=== PATIENT | male | born 1985 | race African-American/Black ===

== ENCOUNTER 2021-07-29 18:39 | Emergency (ER) | payer OTHER, SELFPAY ==
--- NOTE | ~2021-07-29 | CT_ITS ---
EXAMINATION: CT facial bones wo [facility] EXAM DATE: 07/29/2021 19:32 INDICATION: Fall on the ice . Facial injury, laceration bruising left orbital region. TECHNIQUE: Spiral CT of the facial bones was acquired in the axial plane without contrast. Coronal reformatted images were also reviewed. The dose-length product (DLP) for this examination was 301.47 mGy-cm. The exposure was tailored according to patient size, and iterative reconstruction (ASIR) wa s used as additional dose reduction technique. There is no prior study for comparison. FINDINGS: There are no displaced acute nasal bone fractures. The mandible, sinuses and orbits are in tact. The orbits, globes and extraocular muscles are unremarkable. The visualized sinuses and mas toid air cells are well aerated. There is left periorbital swelling. IMPRESSION: 1. No acute facial fracture. 2. Left periorbital swelling. Reviewed, dictated and finalized at location . LING AGENCY MANAGER
--- NOTE | ~2021-07-29 | CT_ITS ---
EXAMINATION: CT lumbar spine janneth ritter EXAM DATE: 07/29/2021 19:31 INDICATION: Fall on the ice . Low back pain, initial encounter. TECHNIQUE: Spiral CT lumbar spine was performed without contrast. Axial, coronal and sagittal images of the lumbar spine were reviewed. The dose-length product (DLP) for this examination was 645.56 mGy- cm. The exposure was tailored according to patient size (auto mA exposure control), and iterative re construction (ASIR) was used as additional dose reduction technique. There is no prior study for cuate [place]. FINDINGS: There is no evidence of acute lumbar fracture. There is no disc space widening or traumatic vertebra l body subluxation suspected. Paraspinal soft tissue is unremarkable. Vertebral body and disc heigh ts are well-maintained. A detailed level by level evaluation of spondylosis can be added as addendum if requested. IMPRESSION: 1. No acute lumbar findings. Reviewed, dictated and finalized at location . USION ANALYST
--- NOTE | ~2021-07-29 | CT_ITS ---
EXAMINATION: CT diagnostic chest wo con EXAM DATE: 07/29/2021 19:33 INDICATION: Fall on the ice . Anterior superior rib pain. Low back pain. TECHNIQUE: Spiral CT of the chest without contrast. Axial, coronal and sagittal images of the chest were reviewed. Coronal maximum intensity pixel images of chest reviewed. The dose-length product ( DLP) for this examination was 175.48 mGy-cm. The exposure was tailored according to patient size (au to mA exposure control), and iterative reconstruction (ASIR) was used as additional dose reduction [place]. There is no prior study for comparison. FINDINGS: There are no acute fractures identified. The lungs are clear. There are no pleural or pe ricardial effusions. Tracheobronchial tree is patent. There is no mediastinal, hilar or axillary lymphadenopathy. There is no pneumothorax. Heart normal in size. No evidence of coronary arteri al calcification. Upper abdomen is unremarkable. There is thoracic spondylosis without osteoblasti c or osteolytic lesions identified. IMPRESSION: No acute cardiopulmonary findings. Reviewed, dictated and finalized at location G. GHT TALLIER
[2021-07-29 18:51] VITALS: BP 143/93; PULSE 66; RESP 20; TEMP 36.8; O2SAT 100
--- NOTE | 2021-07-29 18:52 | ED.FALL ---
HPI - Fall General Chief Complaint: Fall Stated Complaint: Ambulance Time Seen by Provider: 07/29/21 18:43 Source: patient, EMS and RN notes reviewed Mode of arrival: EMS Limitations: no limitations History of Present Illness HPI Narrative: Patient slipped on the ice in the parking lot at [employer]. Said his feet went backwards and he fell directly onto his anterior chest and left face. He complains of low back pain left facial pain and chest wall pain. [employer] was not open for indoor dining. complaint: fall Onset (ago): minute(s) (30) Fall from: standing Fall witnessed: yes, by family Place fall occurred: other ( [facility] parking lot) Loss of consciousness: none Symptoms prior to fall: none Context: tripped/slipped ( ice) Location of injury: face, chest and back Severity scale (1-10): 9 Quality: dull and aching Associated symptoms (after fall): headache Related Data Allergies Allergy/AdvReac Type Severity Reaction Status Date / Time SEAFOOD Allergy Rash Uncoded 07/29/21 18:58 Review of Systems Review of Systems: All systems reviewed & are unremarkable except as noted in HPI and below PMFSH Past Medical History Medical History (Updated 07/29/21 @ 20:50 by Drake Ibarra MD) Asthma Surgical History Surgical History (Updated 07/29/21 @ 19:07 by Drake Ibarra MD) History of mandibular surgery Social History Social History (Updated 07/29/21 @ 19:07 by Drake Ibarra MD) Smoking status: Current every day smoker Tobacco type: cigarettes Exam Const: General: healthy appearing, no acute distress and alert Nutritional Appearance: well nourished Orientation/consciousness: patient oriented x3 Other: GCS-15 HENMT: Ears: TM's normal bilaterally Face and sinus: normal facial exam Mouth: Yes moist mucous membranes Eyes: Conjunctivae: conjunctivae normal Pupils: Equal, round and reactive pupils present EOM: EOMs intact bilaterally Neck: Neck: normal visual inspection Chest: Chest palpation & inspection: tenderness rib right mid-scapular line involving the 4th rib and involving the 5th rib Resp: Effort & Inspection: normal respiratory effort Auscultation: clear to auscultation bilaterally Cardio: Rate: regular rate Rhythm: regular rhythm GI: GI Palp: Yes Soft to palpation, No Tenderness to palpation present (GI) and No Guarding due to palpation present (GI) Auscultation: normal bowel sounds Back/Spine/Pelvis: Cervical Spine: cervical ROM normal Thoracic/Lumbar Spine: straight leg raise negative bilaterally, paraspinal muscle tenderness bilaterally in the lower lumbar, thoraco-lumbar ROM limited and lumbar spinal tenderness at L3, at L4 and at L5 Skin: General skin exam: normal color Rashes: no rashes Wounds: wounds noted (left lateral eyebrow) laceration left lateral face size (2 cm) Neuro: General: patient oriented x3, moves all extremities, no meningeal signs, no focal motor deficits and Unable to assess gait Speech: normal speech Gait exam (Neuro): Normal gait present Extrem: General: normal to inspection and no clubbing, cyanosis or edema Psych: Appearance: grossly normal and well kempt Mental Status: mental status grossly normal Affect: normal affect Attitude: cooperative Thought content: Yes Normal thought content present Procedures Laceration Laceration 1: Date: 07/29/21 Site: face ( Left lateral eyebrow) Side (If applicable): left Size (cm): 2 Description: linear Depth: simple, single layer Local Anesthetic: lidocaine 1% Pre-repair: wound explored ====== Skin Level ====== Skin layer closed with: nylon Size (cm): 5-0 Number of sutures: 7 Technique: running ====== Subcutaneous Layer ====== ====== Muscle Layer ====== ====== Tendon Layer ====== Discharge Plan Discharge Clinical Impression: Eyebrow laceration Qualifiers: Encounter type: initial encounter Lat
[2021-07-29 19:59] LABS: Amphetamine Screen Urine Negative (Negative); Barbiturate Screen Urine Negative (Negative); Benzodiazepines Screen Urine Negative (Negative); Cannabinoid Screen Urine Positive (Negative); Cocaine Screen Urine Negative (Negative); Methadone Screen Urine Negative (Negative); Opiate Screen Urine Negative (Negative); Phencyclidine Screen Urine Negative (Negative)
[2021-07-29] MEDS: LIDOCAINE HCL 1% LOCAL INJ 20 ML VIAL (20:57)
[2021-07-29] MEDS: NEOMYCIN/POLYMYXIN/BACITRACIN OINTMENT PACKET 1 PACKET (20:58)
[2021-07-29] MEDS: KETOROLAC (*BKC) 60 MG/2 ML VIAL IM (20:58)
[2021-07-29] MEDS: LIDOCAINE HCL 1% LOCAL INJ 20 ML VIAL XX (21:03)
[2021-07-29 21:32] VITALS: BP 126/89; PULSE 59; RESP 17; TEMP 36.7; O2SAT 100
== END 2021-07-29 21:34 | disposition home or self-care (01) ==
PROVIDERS: Emergency Provider Emergency Medicine
DX: S01.112A Laceration without foreign body of left eyelid and periocular area, initial encounter (principal); S20.211A Contusion of right front wall of thorax, initial encounter; S33.5XXA Sprain of ligaments of lumbar spine, initial encounter; W19.XXXA Unspecified fall, initial encounter
CPT/HCPCS: 12011; 70486; 71250; 72131; 80307; 96372; 99284; J1885